=== PATIENT | male | born 1995 ===

== ENCOUNTER 2020-01-11 13:17 | Emergency (ER) | payer SELFPAY ==
[2020-01-11 13:19] VITALS: BP 134/86; PULSE 86; RESP 18; TEMP 37; O2SAT 96; BMI 29.8
[2020-01-11 13:28] VITALS: RESP 18
--- NOTE | 2020-01-11 13:32 | ED_ITS ---
HPI - Eye Problem General: Chief complaint: Eye Problems Stated complaint: swollen eye Time Seen by Provider: 01/11/20 13:23 History of Present Illness: HPI Narrative: This patient is a healthy 24-year-old male who presents today with eye pain and swelling. He said he woke up about 2 in the morning on Sunday morning with pain in his right eye. He does not recall any injury to it or any foreign bodies that might be in it. The symptoms continue to worsen and this morning he woke up with his eye stuck shut with discharge. His vision was a little bit blurry yesterday but seems to be okay today. He has pain around the lids and eye but not pain with eye movement. He has no sinus symptoms. No fever, no headache. He does not wear contacts. MD chief complaint: eye pain and eye redness Onset (ago): day(s) (2) Onset description: sudden Duration: constant Location: right eye Eye Symptoms: redness, pain, foreign body sensation and discharge Place: home Mechanism: none Severity: moderate Associated symptoms: Reports no associated symptoms; Denies nausea or vomiting Review of Systems Eyes: Reports: eye discomfort and eye discharge ENMT: Denies: throat pain, odynophagia or ear or mastoid pain GI: Denies: nausea or vomiting PFSH ED PFSH: Social History Smoking and tobacco status: current every day smoker Physical Exam Const: COMMON NORMALS: no acute distress, patient oriented x3, no limitations and alert GENERAL APPEARANCE: cooperative and comfortable HENMT: HEAD & SCALP: normal to inspection FACE & SINUS: normal facial exam Eye: COMMON NORMALS: Equal, round and reactive pupils present and EOMs intact bilaterally VISUAL ACUITY: Yes visual acuity right eye CONJUNCTIVA: Yes conjunctival abnormal (Red) positive right CORNEA: Yes corneas normal and fluorescein used PUPIL: Yes Equal, round and reactive pupils present Neck/C-Spine: COMMON NORMALS: supple, no meningeal signs and no JVD Resp: COMMON NORMALS: normal respiratory effort and No use of accessory muscles Cardio: COMMON NORMALS: no JVD Extremity: COMMON NORMALS: normal to inspection Neuro: COMMON NORMALS: patient oriented x3, moves all extremities, no focal motor deficits and no sensory deficits noted SENSORIUM/ORIENTATION: Yes alert MENINGEAL SIGNS: Yes no meningeal signs Psych: COMMON NORMALS: mental status grossly normal, cooperative and normal affect Skin: COMMON NORMALS: no rashes or lesions noted and turgor normal GENERAL SKIN EXAM: no rashes or lesions noted and turgor normal Course Vital Signs: Vital signs: Vital Signs Temperature 98.6 F 01/11/20 13:53 Pulse Rate 86 01/11/20 13:19 Respiratory Rate 18 01/11/20 13:53 Blood Pressure 134/86 01/11/20 13:19 Pulse Oximetry 96 01/11/20 13:53 Discharge Plan Discharge Patient Disposition: Home, Self-Care Clinical Impression: Conjunctivitis Qualifiers: Conjunctivitis type: acute Acute conjunctivitis type: unspecified Laterality: right Qualified Code(s): H10.31 - Unspecified acute conjunctivitis, right eye Condition: Stable Discharge Orders: Discharge Order (Routine); Ordered 01/11/20 Ordered By: Elle Jack Referrals: Darrel Villafana FNP [Emergency Department] - Discharge Diet: Usual diet Discharge Activity: Resume usual activity Patient Instructions: Conjunctivitis (ED) Activity Restrictions/Additional Instructions: Use the antibiotic ointment 4 times a day as directed. Follow-up with your eye doctor if not improving within 3 to 4 days. Return to the emergency department if worsening pain, vision changes, fever, pain behind her eye or pain with eye movement. Wash your hands often or use hand senior reservations agent as this can be quite contagious. 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
[2020-01-11] MEDS: tetracaine 0.5% Op Soln 4 mL Btl 1 DROP EYE-RIGHT (13:38)
[2020-01-11] MEDS: erythromycin Op Oint 1 gm 1 APPLIC EYE-RIGHT (13:39)
[2020-01-11] MEDS: fluorescein 1 mg Strip EYE-RIGHT (13:39)
[2020-01-11 13:53] VITALS: RESP 18; TEMP 37; O2SAT 96
== END 2020-01-11 13:54 | disposition home or self-care (01) ==
PROVIDERS: Emergency Provider Emergency Medicine
DX: H10.31 Unspecified acute conjunctivitis, right eye (principal); F17.210 Nicotine dependence, cigarettes, uncomplicated
CPT/HCPCS: 12345; 99281; 99283